=== PATIENT | female | born 1940 | race Caucasian/White ===

== ENCOUNTER 2017-02-26 18:29 | Emergency (ER) | payer MEDICARE ==
[~2017-02-26] VITALS: Ht 157.5 cm; Wt 117.9 kg
[~2017-02-26 18:29] MED LIST: ACETAMINOPHEN-1 EAC1 PO; ADVIL100 MG PO; ALLFEN400 MG PO; ASPIRIN325 MG PO; B-100 COMPLEX1 EACH PO; BENZONATATE200 MG PO; CALCIUM500 MG; CITRUCEL479 GM PO; CRUTCH1 EACH; CYCLOBENZAPRINE10 MG PO; ESTRACE2 MG PO; GLUCOPHAGE500 MG PO; GLUCOSAMINE CO1 EACH PO; IMITREX100 MG PO; LEVOTHYROXINE100 MCG PO; LORATADINE-D 21 EACH PO; LORAZEPAM0.5 MG PO; MEGA MULTIVITA1 EACH PO; NAPROXEN500 MG PO; NASALCROM26 ML NS; NOVOLIN R100 UNIT/1; OMEPRAZOLE20 M1 PO; PERCOCET 5-3251 EACH PO; PROAIR HFA8.5 GM IH; PSEUDOEPHEDRINE60 MG PO; SPIRONOLACTONE25 MG PO; VITAMIN B-2100 MG PO; VITAMIN B12-FO1 EACH PO; VITAMIN C1000 MG PO; VITAMIN D31000 UNI1 PO
--- NOTE | 2017-02-27 18:24 | EKG ---
[facility] [address] [facility] [place], [place] [address] Signed Sinus rhythm with 1st degree AV block Left bundle branch block Abnormal ECG No previous ECGs available Confirmed by MOOSE JEFFERSON MD ([id number] on 02/27/2017 6:24:17 PM Electronically Signed By: MOOSE JEFFERSON MD 02/27/17 1824 PATIENT NAME: JIMENEZ ALCANTARA Electrocardiogram DATE OF : 44 PHYSICIAN: MOOSE JEFFERSON MD REPORT #: [id number] REPORT IS CONFIDENTIAL AND NOT TO BE RELEASED WITHOUT AUTHORIZATION
== END 2017-02-26 22:02 | disposition home or self-care (01) ==
LOC: ED 18:29
DX: S06.0X9A Concussion with loss of consciousness of unspecified duration, initial encounter (principal); S00.83XA Contusion of other part of head, initial encounter; E11.9 Type 2 diabetes mellitus without complications; E03.9 Hypothyroidism, unspecified; Z90.710 Acquired absence of both cervix and uterus; Z79.4 Long term (current) use of insulin; Z79.899 Other long term (current) drug therapy; Z79.82 Long term (current) use of aspirin; X58.XXXA Exposure to other specified factors, initial encounter
CPT/HCPCS: 70450; 71010; 80053; 81001; 84484; 85025; 93005; 93010; 99284